=== PATIENT | male | born 1945 | race Caucasian/White ===

== ENCOUNTER 2020-10-30 07:47 | Emergency (ER) | payer MEDICARE, SELFPAY ==
--- NOTE | ~2020-10-30 | XR_ITS ---
EXAMINATION: XR pelvis 1-2V DATE: 10/30/2020 09:53 INDICATION: Nontraumatic right buttock and low back pain radiating down the right leg. TECHNIQUE: 1. Anteroposterior and lateral views of the lumbar spine, and cone-down lateral view of the lumbosacr al junction were obtained. 2. AP view of the pelvis was obtained. COMPARISON: None. FINDINGS: Hypoplastic riblets at a transitional thoracolumbar segment. There are 4 more caudal nonrib-bearing l umbar segments for purposes of this report the estimated L1-L4. Alignment is normal. Vertebral body h eights are normal. Moderate disc height loss at L3-L4. Additional loss of disc height with suggestion of ankylosis at L4-S1. Mild bilateral sacroiliac osteoarthritis. Bilateral hip joint spaces are rela tively preserved. Multiple phleboliths in the pelvis. 3 cm thin wire/needle like metallic foreign bod y in the left upper quadrant. IMPRESSION: 1. Moderate lower lumbar spondylosis. No acute osseous abnormality in the lumbar spine or pelvis. 2. 3 cm thin wire/needle like metallic foreign body in the left upper quadrant. Reviewed, dictated and finalized at location A. IMPRESSION: 1. Moderate lower lumbar spondylosis. No acute osseous abnormality in the lumba r spine or pelvis. 2. 3 cm thin wire/needle like metallic foreign body in the left upper quadrant.
--- NOTE | ~2020-10-30 | XR_ITS ---
EXAMINATION: XR lumbar spine 2-3V DATE: 10/30/2020 09:53 INDICATION: Nontraumatic right buttock and low back pain radiating down the right leg. TECHNIQUE: 1. Anteroposterior and lateral views of the lumbar spine, and cone-down lateral view of the lumbosacr al junction were obtained. 2. AP view of the pelvis was obtained. COMPARISON: None. FINDINGS: Hypoplastic riblets at a transitional thoracolumbar segment. There are 4 more caudal nonrib-bearing l umbar segments for purposes of this report the estimated L1-L4. Alignment is normal. Vertebral body h eights are normal. Moderate disc height loss at L3-L4. Additional loss of disc height with suggestion of ankylosis at L4-S1. Mild bilateral sacroiliac osteoarthritis. Bilateral hip joint spaces are rela tively preserved. Multiple phleboliths in the pelvis. 3 cm thin wire/needle like metallic foreign bod y in the left upper quadrant. IMPRESSION: 1. Moderate lower lumbar spondylosis. No acute osseous abnormality in the lumbar spine or pelvis. 2. 3 cm thin wire/needle like metallic foreign body in the left upper quadrant. Reviewed, dictated and finalized at location A. IMPRESSION: 1. Moderate lower lumbar spondylosis. No acute osseous abnormality in the lumba r spine or pelvis. 2. 3 cm thin wire/needle like metallic foreign body in the left upper quadrant.
[2020-10-30 07:50] VITALS: BP 161/61; PULSE 60; RESP 20; TEMP 36.7; O2SAT 100
--- NOTE | 2020-10-30 09:17 | ED.BACK ---
HPI - Back Pain/Injury General Chief Complaint: Back Pain/Injury Stated Complaint: R HIP PAIN Time Seen by Provider: 10/30/20 08:23 Source: patient and family Mode of arrival: ambulatory Limitations: no limitations History of Present Illness HPI Narrative: Patient is 75 years old white male presented to the ED with pain at the center of the right buttocks with intermittent radiation to the right foot started 4 to 5 days ago. Patient denies any trauma,patient denies bowel dysfunction, bladder dysfunction, altered sensation, focal weakness, or saddle numbness,. Patient also denies any fever, chills, nausea, vomiting, urinary symptoms, abdominal pain or chest pain, Related Data Home Medications Medication Instructions Recorded Confirmed amiodarone 200 mg PO DAILY 10/30/20 10/30/20 metoprolol succinate 50 mg PO DAILY 10/30/20 10/30/20 Allergies Allergy/AdvReac Type Severity Reaction Status Date / Time No Known Allergies Allergy Verified 10/30/20 07:53 Review of Systems Review of Systems: Narrative: CONSTITUTIONAL: Denies fever, chills, or sweats. EYES: Denies visual changes, redness, or discharge. ENT: Denies rhinorrhea, congestion, sore throat, or otalgia. CARDIOVASCULAR: Denies chest pain, palpitations, or edema. RESPIRATORY: Denies cough or dyspnea. GASTROINTESTINAL: Denies abdominal pain, nausea, vomiting, or diarrhea. GENITOURINARY: Denies dysuria or hematuria. SKIN: Denies rash or itching. MUSCULOSKELETAL: Denies back pain, joint pain, or myalgia. NEUROLOGIC: Denies headache, numbness, or weakness. PSYCHIATRIC: Denies anxiety or depression. PMFSH Family History Family History Father Acute myocardial infarction Social History Social History Smoking status: Never smoker Second hand tobacco smoke exposure: Yes Alcohol intake: current Gender identity (if verbalized by the patient): Male Exam Narrative: Exam Narrative: General appearance: Well-developed, well-nourished Skin: Normal color Head: Normocephalic, nontraumatic Eyes: Clear conjunctiva ENT: Oropharynx normal, ears normal, nose normal Neck: Supple, nontender Chest and respiratory: Airway patent, no respiratory distress, no accessory muscle use Heart: Regular rate/rhythm Abdomen: Soft, nontender, no organomegaly, quiet bowel sounds Vascular: Normal peripheral pulses, normal capillary refill. Musculoskeletal: Diffuse tenderness at the center of the right buttock, no bruises, no swelling or rash, negative leg raising test Neurologic: Alert and oriented ?3, BURNER HAND is normal as tested, no gross motor deficit Course Course Emergency Course: Improving Reevaluation(s) Reevaluation #1: Patient feeling much better, less pain at the time of discharge. Patient is not aware about the foreign body at the left side of his abdomen. 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 and the probably something went inside his belly and he was not aware of Date: 10/30/20 Time: 10:39 Vital Signs Vital signs: Vital Signs Temperature 36.7 C 10/30/20 07:50 Pulse Rate 60 10/30/20 07:50 Respiratory Rate 20 10/30/20 07:50 Blood Pressure 161/61 H 10/30/20 07:50 Pulse Oximetry 100 10/30/20 07:50 Temperature 36.7 C 10/30/20 09:54 Pulse Rate 54 L 10/30/20 09:26 Respiratory Rate 18 10/30/20 09:26 Blood Pressure 157/67 H 10/30/20 09:26 Pulse Oximetry 100 10/30/20 09:26 MDM - Back Pain/Injury MDM Narrative Medical decision making narrative: Sacroiliac joints, musculoskeletal lower back pain is my c
[2020-10-30] MEDS: IBUPROFEN 600 MG TABLET PO (09:23)
[2020-10-30] MEDS: diazePAM (*CRX) 5 MG TABLET 2.5 MG PO (09:23)
[2020-10-30] MEDS: MORPHINE SULFATE INJ (*CRX) 10 MG/ML AMP 6 MG IM (09:24)
[2020-10-30 09:26] VITALS: BP 157/67; PULSE 54; RESP 18; O2SAT 100
[2020-10-30 09:53] VITALS: TEMP 36.7
[2020-10-30 09:54] VITALS: TEMP 36.7
[2020-10-30 10:46] VITALS: BP 142/70; PULSE 62; RESP 18; O2SAT 98
== END 2020-10-30 10:48 | disposition home or self-care (01) ==
PROVIDERS: Emergency Provider Emergency Medicine; PCP Internal Medicine
DX: M47.26 Other spondylosis with radiculopathy, lumbar region (principal); S39.012A Strain of muscle, fascia and tendon of lower back, initial encounter; X58.XXXA Exposure to other specified factors, initial encounter
CPT/HCPCS: 72100; 72170; 96372; 99284; A9270; J2270

== ENCOUNTER 2020-11-19 09:39 | Outpatient (CLI) | payer MEDICARE, SELFPAY ==
--- NOTE | ~2020-11-19 | MR_ITS ---
EXAMINATION: MR lumbar spine wo con EXAM DATE: 11/19/2020 10:37 INDICATION: Pain in right lower extremity, right hip and leg pain. Low back pain. TECHNIQUE: Multi-sequential, multiplanar MR images of the lumbar spine were obtained without contrast . Sagittal T1, T2, T2 fat saturation images. Axial T2 weighted images. Study is limited due to pat ient motion. There are no prior studies for comparison. FINDINGS: Moderate disc disease L4-5. Partially fused L5-S1 level. Mild disc disease other lumbar lev els. The conus medullaris terminates at the T12-L1 level and has normal signal intensity and morpholo gy. There are scattered focal signal abnormalities consistent with hemangiomata, otherwise without f ocal suspicious marrow signal abnormalities. The vertebral bodies are aligned in the AP dimension. Pa raspinal soft tissue is unremarkable. Level by level evaluation: T12-L1: Disc does not extend beyond the endplate margin. Facet arthropathy: Mild. Neural foraminal stenosis: No stenosis. Central canal stenosis: No stenosis. L1-L2: There is a minimal diffuse disc bulge. Facet arthropathy: Mild. Neural foraminal stenosis: No stenosis. Central canal stenosis: No stenosis. L2-L3: There is a minimal diffuse disc bulge. Facet arthropathy: Mild to moderate. Neural foraminal stenosis: No stenosis. Central canal stenosis: No stenosis. L3-L4: There is a mild diffuse disc bulge. Facet arthropathy: Moderate. Neural foraminal stenosis: Mild bilateral. Central canal stenosis: Mild. L4-L5: There is a moderate diffuse disc bulge. Facet arthropathy: Mild to moderate. Neural foraminal stenosis: Moderate to severe right, moderate left. Central canal stenosis: Mild. L5-S1: This level is fused. Facet arthropathy: Mild. Neural foraminal stenosis: Mild to moderate bilateral. Central canal stenosis: No stenosis. IMPRESSION: 1. L4-5 moderate disc disease and left neural foraminal stenosis, moderate to severe right neural fo raminal stenosis. 2. Less spondylosis other levels. Reviewed, dictated and finalized at location A. IMPRESSION: 1. L4-5 moderate disc disease and left neural foraminal stenosis, moderate to severe right neural foraminal stenosis. 2. Less spondylosis other levels.
== END 2020-11-19 09:40 | disposition home or self-care (01) ==
PROVIDERS: PCP Internal Medicine; Visit Provider Internal Medicine
DX: M79.604 Pain in right leg (principal); M47.817 Spondylosis without myelopathy or radiculopathy, lumbosacral region
CPT/HCPCS: 72148

== ENCOUNTER 2024-08-26 07:43 | Outpatient (CLI) | payer MEDICARE, SELFPAY ==
--- OUTSIDE RECORDS SUMMARY | 2024-08-26 07:53 | XMS_ITS | CONTINUITY OF CARE DOCUMENT ---
Author Name tania marin Address Unknown Organization [facility] Address [address] [place] [address] Phone [phone] Care Team Providers Care Commercial Lines Underwriter Name Role Phone Armand HORAN, Luke Unavailable LEATHA HORAN, KRISTIAN Unavailable [phone] TOBIAS MD Unavailable [phone] INSURANCE PROVIDERS Payer name Policy type / Coverage type [place] red republican ID U[employer] MEDICARE COMPLETE HMO Other [id number]
--- OUTSIDE RECORDS SUMMARY | 2024-08-26 07:53 | XMS_ITS | Clinical Summary ---
Author Organization [facility] Address [address] [place] [id number] Care Team Providers Care Pressure Washer Name Role Phone Tigist Zan Taylor Primary Care Provider Unavailabl e Allergies Active Allergy Reactions Criticality Noted Date Comments Paragoric Palpitations Low Medications CARTIA XT 120 mg 24 hr capsule TK 1 C PO QD 6 7 Active meloxicam (MOBIC) 7.5 mg tablet TK 1 T PO D FOR INFLAMMATION 0 7 Active HYDROcodone-marcella taminophen (NORCO) 5-325 mg per tabletIndicatio ns:Pain Take 1-2 tablets every 4 hours as needed for pain 30 tablet 7 Active metoprolol XL (TOPROL-XL) 50 mg extended release tablet Take 1 tablet (50 mg total) by mouth daily 30 tablet 0 Active amiodarone (PACERONE) 200 mg tablet Take 1 tablet (200 mg total) by mouth every other day 45 tablet 3 0 Active Active Problems Problem Noted Date Diagnosed Date Arthritis of right knee 12/13/2016 Assessment & Plan (12/13/2016 12:36 PM CDT): A cortisone injection was given through a sterile field. The patient tolerated the procedure well. It is possible he has a subacute gouty attack with a normal uric acid level. He should hydrate and continue with the oral anti-inflammatories until his symptoms are gone. 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
--- OUTSIDE RECORDS SUMMARY | 2024-08-26 07:53 | XMS_ITS | Data Portability ---
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 Name Role Phone VIRGINIE CASTRO Primary Care Provider VIRGINIE CASTRO Referring Provider [phone] Assessment Encounter Date Assessment Date Assessment LastModified by Organization Details LastModified Time 11/02/2022 11/02/2022 ENT PFTs and [address] x-ray because of amiodarone blood work continue current therapy follow-up 4 months [email or web address] Not available 11/02/2022 22:52:32 04/17/2023 04/17/2023 Advised to see E NT for probable cancers lesion on your with never had documentation of his arrhythmia I suspect it was atrial fibrillation however he has not been placed on any anticoagulation so and he has remained in a sinus rhythm clinically continue current therapy he will follow-up with me in 4 months recommended to stay up-to-date on COVID RSV and flu shots Not available 04/20/2023 11:23:34 06/12/2023 06/12/2023 Blood work since he is on amiodarone also chest x-ray PFT with DLCO parking placard because of it arthritis in the knees follow-up with me in 6 months refuses flu shots COVID RSV [email or web address] Not available 06/12/2023 21:16:57 Plan of Treatment Reminders Order Date Submit Date Provider Last Modified By Organization Details Last Modified Time Details Appointments None recorded. Lab PSA, total, serum or plasma 2023 024 [email or web address] [facility] (Lab), [address] [place], [address], 08:53:57 TSH, serum or plasma 2023 024 [email or web address] [facility] (Lab), [address] [place], [address], 4 08:53:56 T3, free, serum or plasma 2023 024 [email or web address] [facility] (Lab), [address] [place], [address], 4 08:53:56 T4, free, serum [email or web address] [place] [address] (Lab), [address] [place], [address], 4 08:53:56 CBC w/ auto diff [email or web address] [place] [address] (Lab), [address] [place], [address], 4 08:53:57 lipid panel, serum 2023 024 [email or web address] [facility] (Lab), [address] [place], [address], 4 08:53:57 CMP, serum or plasma 2023 024 [facility] (Lab), [address] [place], [address], 4 08:53:57 T3, free, serum or plasma [address] (Lab), [address] [place], [address], 3 16:22:24 T4, free, serum 2022 023 [email or web address] [facility] (Lab), [address] [place], [address], 3 16:22:24 TSH, serum or plasma [address] (Lab), [address] [place], [address], 3 16:22:24 CBC w/ auto diff [address] (Lab), [address] [place], [address], 3 16:22:24 lipid panel, serum [address] (Lab), [address] [place], [address], 3 16:22:24 CMP, serum or plasma [address] (Lab), [address] [place], [address], 3 16:22:24 Referral ENT surgery referral 2022 023 erika Smart MD, [address], [place], [address], 3 09:54:12 Procedures None recorded. Surgeries None recorded. Imaging XR, chest 2023 024 [email or web address] [facility] ([facility]), [address] [place], [address], 4 08:54:26 XR, chest 2022 023 [facility] ([facility]), [address] [place], [address], 3 16:03:33 Medication Orders None recorded. Patient TargetsNo targets recorded. Patient Instructions Encounter Date Encounter Id Patient Instructions Last Modified By Organization Details Last Modified Time 11/02/2022 [id number] complete PFT* - with DLCO [email or web address] Not available 06/12/2023 14:19:49 06/12/2023 [id number] complete PFT* - pft with dlco [email or web address] Not available 03/02/2024 08:54:42 Reason for Referral ENT Surgery Referral for Les ion of skin of right ear Referring Physician: Virginie Castro, Internal Medicine, Encounter Date: 11/02/2022 Results Created Date Observation Date Name Description Value Unit Range Abnormal Flag Note LastModifiedBy Organization Detail LastModifiedTime 11/03/1911/02/2022 CBC/C OMPLE TE BLD COUNT W/DIF F white blood cells 6.1 x10'3 /uL 4.2-10 .8 Not Available [facility] (Lab) [address] [place], [address], 11/02/2022 14:35:59 11/03/19 23 11/02/2022 CBC/C OMPLE TE BLD COUNT W/DIF F red blood cells 4.85 x10'6 /uL 4.10-5 .80 Not Available [facility] (Lab) [address] [place], [address], 11/02/2022 14:35:59 11/03/19 23 11/02/2022 CBC/C OMPLE TE BLD COUNT W/DIF F hemoglobin 14.7 g/dL 13.2-1 7.0 Not Available [facility] (Lab) [address] [place], [address], 11/02/2022 14:35:59 11/03/19 23 11/02/2022 CBC/C OMPLE TE BLD COUNT W/DIF F hematocrit 44.7 % 39.3-5 0.0 Not Available [facility] (Lab) [address] [place], [address], 11/02/2022 14:35:59 11/03/19 23 11/02/2022 CBC/C OMPLE TE BLD COUNT W/DIF F mean red cell volume 92.2 fL 80.0-9 7.0 Not Available [facility] (Lab) [address] [place], [address], 11/02/2022 14:35:59 11/03/19 23 11/02/2022 CBC/C OMPLE TE BLD COUNT W/DIF F mean red cell hemoglobin 30.3 pg 27.0-3 3.0 Not Available [facility] (Lab) [address] [place], [address], 11/02/2022 14:35:59 11/03/19 23 11/02/2022 CBC/C OMPLE TE BLD COUNT W/DIF F mean RBC HGB concentratio n 32.9 g/dL 31.0-3 6.0 Not Available [facility] (Lab) [address] [place], [address], 11/02/2022 14:35:59 11/03/19 23 11/02/2022 CBC/C OMPLE TE BLD COUNT W/DIF F red cell distribution width 13.1 % 11.8-1 5.5 Not Available [facility] (Lab) [address] [place], [address], 11/02/2022 14:35:59 11/03/19 23 11/02/2022 CBC/C OMPLE TE BLD COUNT W/DIF F platelets 266 x10'3 /uL 150-40 0 Not Available [facility] (Lab) [address] [place], [address], 11/02/2022 14:35:59 11/03/19 23 11/02/2022 CBC/C OMPLE TE BLD COUNT W/DIF F mean platelet volume 9.5 fL 9.0-12 .4 Not Available [facility] (Lab) [address] [place], [address], 11/02/2022 14:35:59 11/03/19 23 11/02/2022 CBC/C OMPLE TE BLD COUNT W/DIF F neutrophils 64.2 % 39.0-7 2.0 Not Available [facility] (Lab) [address] [place], [address], 11/02/2022 14:35:59 11/03/19 23 11/02/2022 CBC/C OMPLE TE BLD COUNT W/DIF F lymphocytes 24.9 % 16.0-4 7.0 Not Available [facility] (Lab) [address] [place], [address], 11/02/2022 14:35:59 11/03/19 23 11/02/2022 CBC/C OMPLE TE BLD COUNT W/DIF F monocytes 7.2 % 5.0-12 .0 Not Available [facility] (Lab) [address] [place], [address], 11/02/2022 14:35:59 11/03/19 23 11/02/2022 CBC/C OMPLE TE BLD COUNT W/DIF F eosinophils 2.3 % 1.0-7. 0 Not Available [facility] (Lab) [address] [place], [address], 11/02/2022 14:35:59 11/03/19 23 11/02/2022 CBC/C OMPLE TE BLD COUNT W/DIF F basophils 0.7 % 0.0-2. 0 Not Available [facility] (Lab) [address] [place], [address], 11/02/2022 14:35:59 11/03/19 23 11/02/2022 CBC/C OMPLE TE BLD COUNT W/DIF F immature granulocytes 0.7 % 0.00-0 .50 high Not Available [facility] (Lab) [address] [place], [address], 11/02/2022 14:35:59 11/03/19 23 11/02/2022 CBC/C OMPLE TE BLD COUNT W/DIF F neutrophils, absolute count 3.95 x10'3 /uL 1.5-8. 0 Not Available [facility] (Lab) [address] [place], [address], 11/02/2022 14:35:59 11/03/19 23 11/02/2022 CBC/C OMPLE TE BLD COUNT W/DIF F lymphocytes, absolute count 1.53 x10'3 /uL 1.07-3 .43 Not Available [facility] (Lab) [address] [place], [address], 11/02/2022 14:35:59 11/03/19 23 11/02/2022 CBC/C OMPLE TE BLD COUNT W/DIF F monocytes, absolute count 0.44 x10'3 /uL 0.29-0 .99 Not Available [facility] (Lab) [address] [place], [address], 11/02/2022 14:35:59 11/03/19 23 11/02/2022 CBC/C OMPLE TE BLD COUNT W/DIF F eosinophils, absolute count 0.14 x10'3 /uL 0.02-0 .53 Not Available [facility] (Lab) [address] [place], [address], 11/02/2022 14:35:59 11/03/19 23 11/02/2022 CBC/C OMPLE TE BLD COUNT W/DIF F basophils, absolute count 0.04 x10'3 /uL 0.01-0 .08 Not Available [facility] (Lab) [address] [place], [address], 11/02/2022 14:35:59 11/03/19 23 11/02/2022 CBC/C OMPLE TE BLD COUNT W/DIF F immature granulocytes ,absolute 0.04 x10'3 /uL 0.00-0 .05 Not Available [facility] (Lab) [address] [place], [address], 11/02/2022 14:35:59 11/03/19 23 11/02/2022 CBC/C OMPLE TE BLD COUNT W/DIF F nucleated red blood cells 0.0 % -0 Not Available [facility] (Lab) [address] [place], [address], 11/02/2022 14:35:59 11/03/19 23 11/02/2022 CBC/C OMPLE TE BLD COUNT W/DIF F NRBC# 0.00 x10'3 /uL Not Available [facility] (Lab) [address] [place], [address], 11/02/2022 14:35:59 11/03/19 23 11/02/2022 LIPID PANEL cholesterol 187 mg/dL 140-19 9 NIH PALLAVI NSUS RECOM MENDA TION FOR VERONIKA STERO L: ADULT CHILD LOW RISK: <200 <170 BORDE RLINE : <200- 239 ----- HIGH RISK: >240 >200 Not Available [facility] (Lab) [address] [place], [address], 11/02/2022 15:13:19 11/03/1911/02/2022 LIPID PANEL triglyceride s 55 mg/dL 0-150 NIH PALLAVI NSUS REPOR T RECOM MENDA TION FOR TRIGL YCERI JUAN: ADULT CHILD LOW RISK: <150 ----- BODER LINE: 150-1 99 ----- HIGH RISK: >200 ----- Not Available [facility] (Lab) [address] [place], [address], 11/02/2022 15:13:19 11/03/1911/02/2022 LIPID PANEL HDL cholesterol 80 mg/dL 40- Not Available [facility] (Lab) [address] [place], [address], 11/02/2022 15:13:19 11/03/19 11/02/2022 LIPID PANEL LDL cholesterol, calculated 96 mg/dL 0-130 NIH PALLAVI NSUS REPOR T RECOM MENDA TIONS FOR LDL: ADULT CHILD LOW RISK <130 <110 (OPTI MAL LDL) <100 ----- BORDE RLINE : 130-1 59 ----- HIGH RISK: >160 >130 A TRIGL YCERI DE RESUL T >400 INVAL IDATE S THE CALCU LATIO N FOR LDL FRACT IONAT ION - THE LDL RESUL T WILL NOT BE REPOR FELIPA. Not Available [facility] (Lab) [address] [place], [address], 11/02/2022 15:13:19 11/03/19 23 11/02/2022 COMPR EHENS SIDNEY METAB OLIC PANEL sodium 138 mmol/ L 137-14 5 Not Available [facility] (Lab) [address] [place], [address], 11/02/2022 15:13:30 11/03/19 23 11/02/2022 COMPR EHENS SIDNEY METAB OLIC PANEL potassium 4.4 mmol/ L 3.5-5. 1 Not Available [facility] (Lab) [address] [place], [address], 11/02/2022 15:13:30 11/03/19 23 11/02/2022 COMPR EHENS SIDNEY METAB OLIC PANEL chloride 101 mmol/ L 98-107 Not Available [facility] (Lab) [address] [place], [address], 11/02/2022 15:13:30 11/03/19 23 11/02/2022 COMPR EHENS SIDNEY METAB OLIC PANEL carbon dioxide 28 mmol/ L 22-30 Not Available [facility] (Lab) [address] [place], [address], 11/02/2022 15:13:30 11/03/19 23 11/02/2022 COMPR EHENS SIDNEY METAB OLIC PANEL anion gap 13.4 mmol/ L 14-22 low Not Available [facility] (Lab) [address] [place], [address], 11/02/2022 15:13:30 11/03/19 23 11/02/2022 COMPR EHENS SIDNEY METAB OLIC PANEL glucose 92 mg/dL 70-99 Not Available [facility] (Lab) [address] [place], [address], 11/02/2022 15:13:30 11/03/19 23 11/02/2022 COMPR EHENS SIDNEY METAB OLIC PANEL BUN 15 mg/dL 8-19 Not Available [facility] (Lab) [address] [place], [address], 11/02/2022 15:13:30 11/03/19 23 11/02/2022 COMPR EHENS SIDNEY METAB OLIC PANEL creatinine 1.32 mg/dL 0.66-1 .25 high Not Available [facility] (Lab) [address] [place], [address], 11/02/2022 15:13:30 11/03/19 23 11/02/2022 COMPR EHENS SIDNEY METAB OLIC PANEL GFR 52 Refer ence Range : [place] ge GFR Healt hy Adult : >60 mL/mi n/1.7 3 m2 Chron ic Kidne y Disea se: 15-60 mL/mi n/1.7 3 m2 Kidne y Failu re: <15/m L/min /1.73 m2 www.n iddk. nih.g ov The MDRD study equat ion has not been valid ated in child danny <18 years of age; pregn ant women ; the elder ly >85 years of age; or in some racia l or ethni c subgr oups, such as Hispa nics. Outsi de the valid ated ila eters , estim ated GFR is less accur ate, requi ring clini michelle judgm ent on a case- by-ca se basis . Clini michelle inter preta tion for other races and ages must be made by the clini carmine. The MDRD study equat ion has not been valid ated for the evalu ation of serum creat inine relat ed to nutri eduardo l statu s or medic ation usage . For perso ns <18 years of age, a pedia tric GFR calcu latсергей is avail able on the [facility] websi te: https ://wesley luna.o emiliano/pr ofess ional s/kdo qi/gf r_cal culat or Not Available [facility] (Lab) [address] [place], [address], 11/02/2022 15:13:30 11/03/19 23 11/02/2022 COMPR EHENS SIDNEY METAB OLIC PANEL alkaline phosphatase 74 U/L 38-126 Not Available [facility] (Lab) [address] [place], [address], 11/02/2022 15:13:30 11/03/19 23 11/02/2022 COMPR EHENS SIDNEY METAB OLIC PANEL alanine aminotransfe rase 13 U/L 0-50 Not Available [facility] (Lab) [address] [place], [address], 11/02/2022 15:13:30 11/03/19 23 11/02/2022 COMPR EHENS SIDNEY METAB OLIC PANEL aspartate aminotransfe rase 22 U/L 15-46 Not Available [facility] (Lab) [address] [place], [address], 11/02/2022 15:13:30 11/03/19 23 11/02/2022 COMPR EHENS SIDNEY METAB OLIC PANEL bilirubin, total 1.60 mg/dL 0.20-1 .30 high Not Available [facility] (Lab) [address] [place], [address], 11/02/2022 15:13:30 11/03/19 23 11/02/2022 COMPR EHENS SIDNEY METAB OLIC PANEL calcium 9.1 mg/dL 8.4-10 .2 Not Available [facility] (Lab) [address] [place], [address], 11/02/2022 15:13:30 11/03/19 23 11/02/2022 COMPR EHENS SIDNEY METAB OLIC PANEL total protein 6.4 g/dL 6.3-8. 2 Not Available [facility] (Lab) [address] [place], [address], 11/02/2022 15:13:30 11/03/19 23 11/02/2022 COMPR EHENS SIDNEY METAB OLIC PANEL albumin 3.7 g/dL 3.0-4. 4 Not Available [facility] (Lab) [address] [place], [address], 11/02/2022 15:13:30 11/03/19 23 11/02/2022 COMPR EHENS SIDNEY METAB OLIC PANEL globulin 2.7 g/dL 2.6-4. 2 Not Available [facility] (Lab) [address] [place], [address], 11/02/2022 15:13:30 11/03/19 23 11/02/2022 COMPR EHENS SIDNEY METAB OLIC PANEL A/G ratio 1.4 ratio 1.0-2. 0 Not Available [facility] (Lab) [address] [place], [address], 11/02/2022 15:13:30 11/03/19 23 11/02/2022 T3 FREE free T3 3.0 pg/mL 2.77-5 .27 Not Available [facility] (Lab) [address] [place], [address], 11/02/2022 15:17:08 11/03/19 23 11/02/2022 T4 FREE free T4 2.10 NG/dL 0.78-2 .19 Not Available [facility] (Lab) [address] [place], [address], 11/02/2022 15:17:18 11/03/19 23 11/02/2022 TSH thyroid-stim ulating hormone 1.430 uIU/m L 0.465- 4.680 Not Available [facility] (Lab) [address] [place], [address], 11/02/2022 15:30:53 11/03/19 23 11/02/2022 XR, chest [facility] [address] [facility] [place] [address] Patien t Name: AGNIESZKA BROKOE Access ion #: [id number] Sex: M : 1945 8 Locati on: [facility]OP Attend ing Physic shavonne: NEMESIO CASTRO Orderi ng Physic shavonne: NEMESIO CASTRO Exam Date: 023 1:20 PM Exam Name: XR CHEST 2V Admitt ing Diagno sis(es ): RADIOL OGY REPORT - FINAL EXAM: XR CHEST 2V HISTOR Y: DETENTION (CURRE NT) DRUG THERAP Y 77-yea r-old male with tachyc ardia, hypert ension , chest palpit ations . COMPAR GERRY: Chest x-ray dated 2021. TECHNI QUE: PA and latera l views of the chest were perfor med. FINDIN GS: No pneumo thorax , pulmon oliverio edema, or consol idativ e infilt rates. There are calcif ied lymph nodes in the bilate ral vandana. The lungs are hypere xpande d with flatte chloé of the diaphr agm on the latera l film. The heart is not enlarg ed. No fractu res are identi fied about the bony thorax . 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 There is slight thorac ic dextro scolio sis. Page 1 of 2 [facility] Geraldine t Name: AGNIESZKA BROOKE Access ion #: [id number] Sex: M : 1945 8 Exam Date: 023 1:20 PM Exam Name: XR CHEST 2V Admitt ing Diagno sis(es ): IMPRES JENNY: 1. Pulmon oliverio hypere xpansi on withou t eviden ce of acute intrat horaci c proces s. 2. 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 Create d and electr onical ly signed by: Mitul brown MD Signed Date: 1:55 PM (CT) Dictat ed by: Mitul brown MD DD: 1:55 PM (CT) DT: 1:55 PM (CT) Page 2 [email or web address] (Imaging) [address] [place], [address], 05/01/2023 13:27:50 Result Notes None recorded. Problems Name Problem SNOMED Code Status Onset Date Resolution Date Notes Provider Name and Address Organization Details Recorded Time Benign prostatic hyperplasia 654386246 Active 2021 Not Available [facility] 3 22:45:13 Essential hypertension 97597995 Active 2021 Not Available [facility] 3 22:45:14 Cardiac arrhythmia 646258924 Active 2019 Not Available [facility] 3 22:45:14 Problem Notes None recorded. Procedures Surgical History Date Name Laterality Status Provider Name and Address Organization Details Recorded Time Vasectomy completed Not Available [facility] 0 08/08/2022 03:02:46 Imaging Results Imaging Date Name Status LastModified by Organiz ation Details LastModified Time 11/02/2022 XR, chest completed [email or web address] [facility] (Imaging) [address] [place], [address], 05/01/2023 13:27:50 Procedure Notes None recorded. Medical Equipment None Reported. Allergies No known drug allergies Medications Name Sig Start Date Stop Date Status Note LastModified by Organization Details LastModified Time naproxen 375 mg tablet TAKE 1 TABLET BY MOUTH TWICE DAILY NEEDED 05/22 completed Not Available Not Available Not Available azithromyci n 250 mg tablet TAKE 2 TABLETS (500 MG) BY ORAL ROUTE ONCE DAILY FOR 1 DAY THEN 1 TABLET (250 MG) BY ORAL ROUTE ONCE DAILY FOR 4 DAYS 12/04 completed Not Available Not Available Not Available amiodarone 200 mg tablet TAKE 1 TABLET BY MOUTH EVERY OTHER DAY DIRECTED 2023 active Not Available Not Available Not Avai lable metoprolol succinate ER 50 mg tablet,exte nded release 24 hr TAKE 1 TABLET BY MOUTH EVERY DAY active Not Available Not Available No t Available valacyclovi r 1 gram tablet TK 1 T PO TID FOR 7 DAYS 02/07 completed Not Available Not Available Not Available hydrocodone 5 mg-acetamin ophen 325 mg tablet Take 1 tablet 3 times a day by oral route as needed. active Not Available Not Available No t Available tramadol 50 mg tablet TAKE 1 TABLET BY MOUTH EVERY 8 HOURS NEEDED 09/13 completed Not Available Not Available Not Available ceftriaxone 1 gram solution for injection Take 1 g by injection route. 02/14 completed Not Available Not Available Not Available tamsulosin 0.4 mg capsule TAKE 1 CAPSULE BY MOUTH EVERY DAY AT BEDTIME 2023 active Not Available Not Available Not Avai lable Xylocaine 20 mg/mL (2 %) injection solution Take 10 mL by injection route. 02/14 completed Not Available Not Available Not Available gentamicin 40 mg/mL injection solution Take 80 mL by injection route. 02/14 completed Not Available Not Available Not Available methylpredn isolone 4 mg tablets in a dose pack FOLLOW PACKAGE DIRECTION S 12/30 completed Not Available Not Available Not Available naproxen 500 mg tablet 02/07 completed Not Available Not Available Not Available cyclobenzap rine 5 mg tablet TK 1 T PO Q 8 H 02/07 completed Not Available Not Available Not Available amiodarone 100 mg tablet Take 1 tablet every day by oral route. 11/02 completed Not Available Not Available Not Available Vitals Date Recorded Body height Body mass index (BMI) Body weight Body temperature Heart rate Systolic blood pressure Diastolic blood pressure Provider Name and Address Organization Details Last Updated DateTime 3 170.18 cm 26.6 kg/m2 88030.7 g 97.8 [degF] 50 /min 130 mm[Hg] 70 mm[Hg] CECILLE [place] [facility] 3 13:24:52 Date Recorded Body height Body mass index (BMI) Body weight Body temperature Heart rate Systolic blood pressure Diastolic blood pressure Provider Name and Address Organization Details Last Updated DateTime 3 170.18 cm 26.6 kg/m2 69485.7 g 97.3 [degF] 61 /min 130 mm[Hg] 72 mm[Hg] Helene Thomas [facility] [employer] [facility] 3 14:01:53 Date Recorded Body height Body mass index (BMI) Body weight Body temperature Heart rate Systolic blood pressure Diastolic blood pressure Provider Name and Address Organization Details Last Updated DateTime 4 170.18 cm 26.8 kg/m2 06320.3 g 97.5 [degF] 60 /min 120 mm[Hg] 82 mm[Hg] Helene Thomas [facility] [employer] [facility] 4 14:07:36 Date Recorded Body mass index (BMI) Body height Oxygen saturation Oxygen saturation in Arterial blood by Pulse oximetry Body temperature Body weight Provider Name and Address Organization Details Last Updated DateTime 2 26.2 kg/m2 170.18 cm 98 % 98 % 98.1 [degF] 02965.9 3 g Not Available [facility] 3 03:04:05 Date Recorded Body mass index (BMI) Body height Heart rate Body temperature Body weight Systolic blood pressure Diastolic blood pressure Provider Name and Address Organization Details Last Updated DateTime 2 25.5 kg/m2 170.18 cm 54 /min 97.5 [degF] 51534.5 6 g 134 mm[Hg] 76 mm[Hg] Not Available [facility] 3 03:04:03 Social History Question Answer Notes LastModified by Organization Details LastModified Time Tobacco Smoking Status Never Smoker Not Available [facility] 08/08/2022 02:57:50 Do You Have An Advance Directive? No Patient Declined Information. [id number] Information not available 08/08/2022 What Is Your Level Of Alcohol Consumption? Moderate Patient Reported About 3 Beers Per Week. [id number] Information not available 08/08/2022 Are You Blind Or Do You Have Difficulty Seeing? No [id number] Information not available 08/08/2022 What Is Your Level Of Caffeine Consumption? Occasional [id number] Information not available 08/08/2022 How Much Tobacco Do You Chew? None [id number] Information not available 08/08/2022 In The 14 Days Before Symptom Onset, Have You Had Close Contact With A Laboratory-confi rmed COVID-19 While That Case Was Ill? No [id number] Information not available 08/08/2022 In The 14 Days Before Symptom Onset, Have You Had Close Contact With A Person Who Is Under Investigation For COVID-19 While That Person Was Ill? No [id number] Information not available 08/08/2022 Are You Deaf Or Do You Have Serious Difficulty Hearing? Yes [id number] Information not available 08/08/2022 What Type Of Diet Are You Following? REGULAR [id number] [id number] Information not available 08/08/2022 Which Illicit Or Recreational Drugs Have You Used? None [id number] Information not available 08/08/2022 Do You Or Have You Ever Used E-cigarettes Or Vape? Never Used Electronic Cigarettes [id number] Information not available 08/08/2022 What Is Your Occupation? Retired [id number] [id number] Information not available 08/08/2022 Have There Been Any Changes To Your Family Or Social Situation? No [id number] [id number] Information not available 08/08/2022 What Is The Fluoride Status Of Your Home? Unknown [id number].0301 [id number] Information not available 08/08/2022 Are There Any Guns Present In Your Home? No MIGRATION.[id number] [id number] Information not available 08/08/2022 Do You Use Insect Repellent Routinely? No [id number] [id number] Information not available 08/08/2022 Where Do You Live? [place]iler MIGRATION.0301 [id number] Information not available 08/08/2022 Do You Have A Medical Power Of Stuntman? No MIGRATION.0301 [id number] Information not available 08/08/2022 What Was The Date Of Your Most Recent Tobacco Screening? 06/12/2023 [email or web address] Information not available 06/12/2023 Have You Ever Been Counseled For Unhealthy Alcohol Use? No MIGRATION.0301 [id number] Information not available 08/08/2022 Do You Have Any Pets? No MIGRATION.0301 [id number] Information not available 08/08/2022 What Is Your Relationship Status? MIGRATION.0301 [id number] Information not available 08/08/2022 Do You Use Your Seat Belt Or Car Seat Routinely? Yes MIGRATION.0301 794336 Information not available 08/08/2022 Do You Have Smoke And Carbon Monoxide Detectors In Your Home? Yes MIGRATION.0301 438453 Information not available 08/08/2022 Are You Passively Exposed To Smoke? Yes MIGRATION.0301 630090 Information not available 08/08/2022 Do You Or Have You Ever Used Smokeless Tobacco? Current Snuff User Occasionally MIGRATION.0301 [id number] Information not available 08/08/2022 Are There Any Smokers In Your House? No MIGRATION.0301 [id number] Information not available 08/08/2022 How Much Tobacco Do You Smoke? No MIGRATION.0301 929273 Information not available 08/08/2022 What Types Of Sporting Activities Do You Participate In? None MIGRATION.0301 [id number] Information not available 08/08/2022 Do You Feel Stressed (tense, Restless, Nervous, Or Anxious, Or Unable To Sleep At Night)? [id number] MIGRATION.0301 [id number] Information not available 08/08/2022 Do You Use Any Illicit Or Recreational Drugs? No MIGRATION.0301 640454 Information not available 08/08/2022 Do You Use Sunscreen Routinely? No MIGRATION.0301 119340 Information not available 08/08/2022 Have You Recently Traveled Abroad? No MIGRATION.0301 923556 Information not available 08/08/2022 Do You Have Any Dietary Restrictions? No MIGRATION.0301 213664 Information not available 08/08/2022 Do You Or Have You Ever Used Any Other Forms Of Tobacco Or Nicotine? Yes MIGRATION.0301 902054 Information not available 08/08/2022 Sex: Male Functional Status Question Answer Note LastModified by Organizat ion Details LastModified Time Do you have difficulty walking or climbing stairs? Yes MIGRATION.7700827 026 Information not available 08/08/2022 Do you have transportation difficulties? No MIGRATION.4982715 026 Information not available 08/08/2022 Are you able to walk? YESASSIST cane MIGRATION.5819636 026 Information not available 08/08/2022 Do you have difficulty doing errands alone? No MIGRATION.4506331 026 Information not available 08/08/2022 Are you able to care for yourself? Yes MIGRATION.1279778 026 Information not available 08/08/2022 Do you have difficulty dressing or bathing? No MIGRATION.3166580 026 Information not available 08/08/2022 What is your exercise level? Occasional MIGRATION.9403750 026 Information not available 08/08/2022 Mental Status Question Answer Note LastModified by Organizat ion Details LastModified Time Do you have difficulty concentrating, remembering or making decisions? No MIGRATION.[id number] 6 Information not available 08/08/2022 Family History Relationship Description Onset Age of this Age Resolved Age Notes LastModified by Organization Details LastModified Time Unspecified Relation Hypertensive disorder MIGRATION.271 [id number] Not available 08/08/2022 03:02:48 Father Old-age deceas ed MIGRATION.162 [id number] Not available 08/08/2022 03:02:48 Mother Old-age deceas ed MIGRATION.059 [id number] Not available 08/08/2022 03:02:48 Son Drowning MIGRATION.413 [id number] Not available 08/08/2022 03:02:48 Medical History Condition Response NERVE DISEASE N CYSTITIS N BLINDNESS N RHEUMATIC FEVER N KIDNEY STONES Y BLADDER PROBLEMS N MRSA N OTHER # 1 N POLIO N LUNG DISEASE/DISORDER N HISTORY OF DRUG ABUSE N RADIATION / CHEMOTHERAPY N COPD N Other # 2 N BLOOD DISEASES N EAR OR HEARING PROBLEMS N MUMPS N BOWEL PROBLEMS N DEPRESSION (INCLUDING POST ) N STROKE/TIA N ULCERS N BENIGN PROSTATIC HYPERPLASIA N MEASLES N MYOCARDIAL INFARCTION N OBESITY N GERD/NAUSEA N ANEURYSM N URINARY/BLADDER/KIDNEY PROBLEMS N CORONARY ARTERY DISEASE (CAD) N ADDICTION CONCERNS N ENDOMETRIOSIS N Impotence N USE OF BLOOD THINNERS N SKIN PROBLEMS N GASTROINTESTINAL DISORDER N PERIPHERAL VASCULAR DISEASE N MUSCLE,JOINT OR BONE PROBLEMS N GASTROINTESTINAL BLEEDING N BLOOD CLOTS N ASTHMA N CATARACTS N ERECTILE DYSFUNCTION N VARICOSITIES N GI PROBLEMS N Low Testosterone N INFERTILITY N AIDS/HIV N CHEMOTHERAPY / RADIATION N LIVER DISEASE N MALE HYPOGONADISM N HYPERTENSION Y Deficiency N TOURETTE'S N ANXIETY DISORDER N BLOOD TRANSFUSION N ANEMIA/BLOOD DISORDER N CHRONIC EAR INFECTIONS N BRONCHITIS N TUBERCULOSIS N GLAUCOMA N FOOT PROBLEM N DIVERTICULITIS N CHICKENPOX N SLEEP APNEA N INFECTIOUS DISEASE N HEART ARRHYTHMIA N PROSTATE N INSOMNIA N HIGH CHOLESTEROL / HYPERLIPIDEMIA N HYPERTHYROIDISM N EYE PROBLEMS N EDEMA N CHRONIC PAIN SYNDROME N HYPOTHYROIDISM N CAROTID BLOCKAGE N CONSTIPATION N BACK / NECK PROBLEMS N HAVE YOU BEEN HOSPITALIZED OR SEEN IN [facility] IN THE PAST YEAR ? N ATHEROSCLEROSIS N BREAST PROBLEMS N DIALYSIS N ECZEMA N OSTEOPOROSIS N ARTHRITIS Y NO SIGNIFICANT PAST MEDICAL HISTORY N APPENDICITIS N DIABETES, TYPE N BAD TEETH N ENT N HEARTBURN / REFLUX N AUTISM SPECTRUM DISORDER (ASD) N HEPATITIS / LIVER DISEASE N GOUT N SLEEP DISORDER N ALZHEIMER'S DISEASE N Brain Problems N HERPES N DEMENTIA N HEADACHES/MIGRAINES N SEIZURES/EPILEPSY N HEART MURMUR N VASCULAR DISEASE N PACEMAKER N Blood Disorder N DIZZINESS N HEART DISEASE/HEART PROBLEMS N KIDNEY DISEASE N MULTIPLE SCLEROSIS N CARDIAC ARRHYTHMIA N CANCER: SPECIFY N ANESTHESIA COMPLICATIONS N ATRIAL FIBRILLATION Y Gall Stones N PULMONARY EMBOLISM N AUTOIMMUNE DISEASE N Past Encounters Encounter ID Performer Location Encounter Start Date Encounter Closed Date Diagnosis/Indication Diagnosis SNOMED-CT Code Diagnosis ICD10 Code Diagnosis Note [id number] [facility] [place] [address] [place] [address] 09/15/2020 00:00:00 09/15/2020 10:31:59 [id number] [facility] Trinidad taylor [address] [facility] [address] [facility] [place] [address] 11/10/2020 00:00:00 11/10/2020 20:17:05 [id number] [facility] [address] [address] 12/30/2020 00:00:00 01/07/2021 12:36:56 [id number] [facility] [address] [place] [address] , [address] [address] 05/22/2021 00:00:00 06/10/2021 22:24:04 [id number] [facility] [place] [address] [facility] [address] [place] [address] 06/22/2021 00:00:00 06/22/2021 13:59:53 [id number] [facility] 15 [address] [facility] [address] [address] 09/04/2021 00:00:00 09/10/2021 14:41:23 [id number] [facility] [address] [place] [address] 09/13/2021 00:00:00 09/13/2021 11:16:11 [id number] [facility] [place] [address] [address] 12/04/2021 00:00:00 12/04/2021 23:04:26 [id number] [facility] [address] [place] [address] 01/17/2022 00:00:00 01/17/2022 11:23:47 [id number] [facility] [address] [place] [address] 02/07/2022 00:00:00 02/07/2022 11:07:27 [id number] [facility] [address] [place] [address] 02/14/2022 00:00:00 02/14/2022 09:28:19 [id number] [facility] [address] [address] 04/23/2022 00:00:00 04/23/2022 22:52:46 [id number] Virginie Castro MD [facility] [place] [address] [address] 11/02/2022 12:46:51 11/02/2022 13:50:03 Long-term drug therapy 606861381 Z79.899 Essential hypertension 02684501 I10 Lesion of skin of right ear 5655252039 5774507 H93.8X1 Cardiac arrhythmia 29545 7007 I49.9 Benign pro static hyperplasia 222471720 N40.0 [id number] Virginie Castro MD [facility] [place] [address] [facility] [place] [address] [place] [address] 04/17/2023 13:54:17 04/17/2023 14:30:28 Benign prostatic hyperplasia 301547723 N40.0 Cardiac arrhythmia 58560 7007 I49.9 Essential hypertension 65419159 I10 Lesion of skin of right ear 5516938188 6501324 H93.8X1 [id number] Virginie Castro MD [facility] Internal Med [facility] [address] [facility] [address] [place] [address] 06/12/2023 13:54:03 06/12/2023 14:59:30 Long-term drug therapy 724179856 Z79.899 Essential hypertension 32253023 I10 Screening for malignant neoplasm of prostate 444941917 Z12.5 Health Concerns Section Related Observation LastModified by Organization Detai ls LastModified Time None Recorded Concern Status LastModified by Organization Details LastModified Time None Recorded Advance Directives Directive N: Patient declined informat ion. Payers Encounter Date Sequence Insurance Name Policy Number Policy Gant Covered Member ID Gant Member ID Guarantor Name 11/02/2022 1 [facility] (MEDICARE REPLACEMENT/A DVANTAGE - HMO) [id number] Agnieszka Rm [id number] Agnieszka Rm 04/17/2023 1 [facility] (MEDICARE REPLACEMENT/A DVANTAGE - HMO) [id number] Agnieszka Rm [id number] Agnieszka Rm 06/12/2023 1 [facility] (MEDICARE REPLACEMENT/A DVANTAGE - HMO) [id number] Agnieszka Rm [id number] Agnieszka Rm Notes Date Note Type Note Provider Name and Address Organization Details Recorded Time 11/02/2022 text/html arrhythmia asymptomatic lesion right ear BPH follows with Urology Virginie Castro MD [address], [facility] [address], [place], [address], [facility] [employer] [facility] 11/02/2022 22:52:51 04/17/2023 text/html Did not go see ENT. Arrhythmia he is not having any problems with palpitations hypertension no headache or dizziness BPH symptoms have been doing fine Virginie Castro MD [address], [place] [address], [place], [address], [facility] [employer] [facility] 04/20/2023 11:23:51 06/12/2023 text/html Did not go see ENT. Arrhythmia he is not having any problems with palpitations hypertension no headache or dizziness BPH symptoms have been doing fine still does not want to see ENT. 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
--- OUTSIDE RECORDS SUMMARY | 2024-08-26 07:53 | XMS_ITS | Data Portability ---
Author Organization [facility] Address [address] [place] [address] Care Team Providers Care Staff Research Associate Name Role Phone VIRGINIE CASTRO Primary Care Provider Unavailabl e Assessment Encounter Date Assessment Date Assessment LastModified by Organization Details LastModified Time 08/08/2023 08/08/2023 Refuses to do any screenings I would like to go down on the amiodarone however he is reluctant to change anything at this time I will see him in 4 months x-ray of both knees [email or web address] Not available 08/11/2023 17:34:02 12/03/2023 12/03/2023 approximately 50 stitches taken out wound well approximated no bleeding check CBC CMP lipid thyroid studies cut amiodarone down to 100 mg daily check PFTs with DLCO still we are trying to get cardiology records see me in 3 months. He does not want any medication he says he just wants to monitor the blood pressure today he says it has up a little bit because he still has little bit of pain in his arm [email or web address] Not available 12/16/2023 21:56:36 07/31/2024 07/31/2024 pulmonary function test. CBC CMP lipid thyroid studies as well as PSA. Advised to stay up-to-date on all screenings and immunizations he will take a Tdap today. He will see me in 4-5 months we are still trying to get old records I told him it was very important to keep up on lung function given the fact that he has been on amiodarone for quite some time refuses to see Cardiology at this point clinically stable [email or web address] Not available 08/01/2024 16:49:40 Plan of Treatment Reminders Order Date Submit Date Provider Last Modified By Organization Details Last Modified Time Details Appointments ANY 15 2024 10:30A Jeanne Castro MD Not available Not available Not available Lab PSA, total, serum or plasma 2024 025 CALEDONIA Juan, [address], [place], [address], 08/01/2024 13:09:27 CBC w/ auto diff 2024 025 CALEDONIA Juan, [address], [place], [address], 08/01/2024 13:09:25 CMP, serum or plasma 2024 025 CALEDONIA Juan, [address], [place], [address], 08/01/2024 13:09:23 lipid panel, serum 2024 025 CALEDONIA Juan, [address], [address], [place], [address], 08/01/2024 13:09:21 TSH, ultra-sen sitive, serum 2024 025 CALEDONIA Juan, [address], [address], [place], [address], 08/01/2024 13:09:24 T3, free, serum or plasma 2024 025 CALEDONIA Juan, [address], [address], [place], [address], 08/01/2024 13:09:28 unlisted lab - T4, free 2024 025 UMBERTO Dickerson, [address], [address], [place], [address], 08/01/2024 13:09:22 CBC w/ auto diff 2023 024 UMBERTOSIERRA Dickerson, [address], [address], [place], [address], 01/21/2024 06:17:48 CMP, serum or plasma 2023 024 [facility], [address], [place], [address], 01/21/2024 06:17:46 lipid panel, serum 2023 024 CALEDONIA [facility], [address], [place], [address], 01/21/2024 06:17:45 TSH, ultra-sen sitive, serum 2023 024 [facility], [address], [place], [address], 01/21/2024 06:17:47 T3, free, serum or plasma 2023 024 [facility], [address], [place], [address], 01/21/2024 06:17:48 unlisted lab - T4, free 2023 024 [facility], [address], [address], [place], [address], 01/21/2024 06:17:46 Referral None recorded. Procedures None recorded. Surgeries None recorded. Imaging PFT, complete - amioda simi therapy Complete PFT with DLCO [address] ([facility]), [address], [place], [address], 07/31/2024 13:27:33 PFT, complete - amioda simi therapy Complete PFT with DLCO 2023 024 [facility] ([facility]), [address] [place], [address], 07/31/2024 12:47:24 Medication Orders amiodaron e 100 mg tablet 2023 024 [id number], [address], [place], [place], [id number], 02/20/2024 12:00:29 Patient TargetsNo targets recorded. Patient Instructions Encounter Date Encounter Id Patient Instructions Last Modified By Organization Details Last Modified Time 12/27/2023 [id number] preventing falls : care instructions [email or web address] Not available 12/27/2023 16:26:32 Medicare Wellnes s Preventive Checklist [email or web address] Not available 12/27/2023 16:26:32 Reason for Referral None Reported. Results Created Date Observation Date Name Description Value Unit Range Abnormal Flag Note LastModifiedBy Organization Detail LastModifiedTime 01/20/2001/21/2024 LIPID PANEL cholesterol, total 160 mg/dL 100-19 9 Not Available [facility] ([facility]) [address] [place], [address], 01/21/2024 06:17:45 01/20/20 24 01/21/2024 LIPID PANEL triglyceride s 57 mg/dL 0-149 Not Available [facility] ([facility]) [address] [place], [address], 01/21/2024 06:17:45 01/20/20 24 01/21/2024 LIPID PANEL HDL cholesterol 73 mg/dL >39 Not Available [facility] ([facility]) [address] [place], [address], 01/21/2024 06:17:45 01/20/20 24 01/21/2024 LIPID PANEL VLDL cholesterol michelle 12 mg/dL 5-40 Not Available [facility] ([facility]) [address] [place], [address], 01/21/2024 06:17:45 01/20/20 24 01/21/2024 LIPID PANEL LDL chol calc ([facility]) 75 mg/dL 0-99 Not Available [facility] ([facility]) [address] [facility] [place], [address], 01/21/2024 06:17:45 01/20/2001/21/2024 T4, FREE T4,free(dire ct) 1.87 NG/dL 0.82-1 .77 above high normal Not Available [facility] ([facility]) [address] [facility] [place], [address], 01/21/2024 06:17:46 01/20/20 24 01/21/2024 COMP. METAB OLIC PANEL (14) glucose 98 mg/dL 70-99 Not Available [facility] ([facility]) [address] [facility] [place], [address], 01/21/2024 06:17:46 01/20/20 24 01/21/2024 COMP. METAB OLIC PANEL (14) BUN 19 mg/dL 8-27 Not Available [facility] ([facility]) [address] [place], [address], 01/21/2024 06:17:46 01/20/20 24 01/21/2024 COMP. METAB OLIC PANEL (14) creatinine 1.51 mg/dL 0.76-1 .27 above high normal Not Available [facility] ([facility]) [address] [place], [address], 01/21/2024 06:17:46 01/20/20 24 01/21/2024 COMP. METAB OLIC PANEL (14) eGFR 47 mL/mi n/1.7 3 >59 below low normal Not Available [facility] ([facility]) [address] [place], [address], 01/21/2024 06:17:46 01/20/20 24 01/21/2024 COMP. METAB OLIC PANEL (14) BUN/creatini ne ratio 13 -24 Not Available [facility] ([facility]) [address] [place], [address], 01/21/2024 06:17:46 01/20/20 24 01/21/2024 COMP. METAB OLIC PANEL (14) sodium 134 mmol/ L 134-14 4 Not Available [facility] ([facility]) [address] [facility], [place], [address], 01/21/2024 06:17:46 01/20/20 24 01/21/2024 COMP. METAB OLIC PANEL (14) potassium 4.5 mmol/ L 3.5-5. 2 Not Available [facility] ([facility]) [address] [facility], [place], [address], 01/21/2024 06:17:46 01/20/20 24 01/21/2024 COMP. METAB OLIC PANEL (14) chloride 98 mmol/ L 96-106 Not Available [facility] ([facility]) [address] [facility] [place], [address], 01/21/2024 06:17:46 01/20/20 24 01/21/2024 COMP. METAB OLIC PANEL (14) carbon dioxide, total 22 mmol/ L 20-29 Not Available [facility] ([facility]) [address] [facility] [place], [address], 01/21/2024 06:17:46 01/20/20 24 01/21/2024 COMP. METAB OLIC PANEL (14) calcium 8.8 mg/dL 8.6-10 .2 Not Available [facility] ([facility]) [address] [facility] [place], [address], 01/21/2024 06:17:46 01/20/20 24 01/21/2024 COMP. METAB OLIC PANEL (14) protein, total 6.0 g/dL 6.0-8. 5 Not Available [facility] ([facility]) [address] [facility] [place], [address], 01/21/2024 06:17:46 01/20/20 24 01/21/2024 COMP. METAB OLIC PANEL (14) albumin 3.7 g/dL 3.8-4. 8 below low normal Not Available [facility] ([facility]) [address] [facility] [place], [address], 01/21/2024 06:17:46 01/20/20 24 01/21/2024 COMP. METAB OLIC PANEL (14) globulin, total 2.3 g/dL 1.5-4. 5 Not Available [facility] ([facility]) [address] [facility] [place], [address], 01/21/2024 06:17:46 01/20/20 24 01/21/2024 COMP. METAB OLIC PANEL (14) bilirubin, total 1.3 mg/dL 0.0-1. 2 above high normal Not Available [facility] ([facility]) [address] [facility] [place], [address], 01/21/2024 06:17:46 01/20/20 24 01/21/2024 COMP. METAB OLIC PANEL (14) alkaline phosphatase 76 IU/L 44-121 Not Available [facility] ([facility]) [address] [place], [address], 01/21/2024 06:17:46 01/20/20 24 01/21/2024 COMP. METAB OLIC PANEL (14) AST (SGOT) 12 IU/L 0-40 Not Available [facility] ([facility]) [address] [place], [address], 01/21/2024 06:17:46 01/20/20 24 01/21/2024 COMP. METAB OLIC PANEL (14) ALT (SGPT) 6 IU/L 0-44 Not Available [facility] ([facility]) [address] [place], [address], 01/21/2024 06:17:46 01/20/20 24 01/21/2024 TSH TSH 1.230 uIU/m L 0.450- 4.500 Not Available [facility] ([facility]) [address] [facility], [place], [address], 01/21/2024 06:17:47 01/20/20 24 01/20/2024 CBC WITH DIFFE RENTI AL/PL ATELE T WBC 5.5 x10e3 /uL 3.4-10 .8 Not Available [facility] ([facility]) [address] [facility], [place], [address], 01/21/2024 06:17:48 01/20/20 24 01/20/2024 CBC WITH DIFFE RENTI AL/PL ATELE T RBC 4.77 x10e6 /uL 4.14-5 .80 Not Available [facility] ([facility]) [address] [facility], [place], [address], 01/21/2024 06:17:48 01/20/20 24 01/20/2024 CBC WITH DIFFE RENTI AL/PL ATELE T hemoglobin 13.9 g/dL 13.0-1 7.7 Not Available [facility] ([facility]) [address] [place], [address], 01/21/2024 06:17:48 01/20/20 24 01/20/2024 CBC WITH DIFFE RENTI AL/PL ATELE T hematocrit 43.1 % 37.5-5 1.0 Not Available [facility] ([facility]) [address] [place], [address], 01/21/2024 06:17:48 01/20/2001/20/2024 CBC WITH DIFFE RENTI AL/PL ATELE T MCV 90 fL 79-97 Not Available [facility] ([facility]) [address] [place], [address], 01/21/2024 06:17:48 01/20/20 24 01/20/2024 CBC WITH DIFFE RENTI AL/PL ATELE T MCH 29.1 pg 26.6-3 3.0 Not Available [facility] ([facility] [address] [facility], [place], [address], 01/21/2024 06:17:48 01/20/20 24 01/20/2024 CBC WITH DIFFE RENTI AL/PL ATELE T MCHC 32.3 g/dL 31.5-3 5.7 Not Available [facility] ([facility]) [address] [facility], [place], [address], 01/21/2024 06:17:48 01/20/20 24 01/20/2024 CBC WITH DIFFE RENTI AL/PL ATELE T RDW 12.7 % 11.6-1 5.4 Not Available [facility] ([facility]) [address] [facility], [place], [address], 01/21/2024 06:17:48 01/20/20 24 01/20/2024 CBC WITH DIFFE RENTI AL/PL ATELE T platelets 254 x10e3 /uL 150-45 0 Not Available [facility] ([facility]) [address] [facility], [place], [address], 01/21/2024 06:17:48 01/20/20 24 01/20/2024 CBC WITH DIFFE RENTI AL/PL ATELE T neutrophils 67 % notest ab. Not Available [facility] ([facility]) [address] [facility], [place], [address], 01/21/2024 06:17:48 01/20/20 24 01/20/2024 CBC WITH DIFFE RENTI AL/PL ATELE T lymphs 24 % notest ab. Not Available [facility] ([facility]) [address] [facility], [place], [address], 01/21/2024 06:17:48 01/20/20 24 01/20/2024 CBC WITH DIFFE RENTI AL/PL ATELE T monocytes 6 % notest ab. Not Available [facility] ([facility]) [address] [facility], [place], [address], 01/21/2024 06:17:48 01/20/20 24 01/20/2024 CBC WITH DIFFE RENTI AL/PL ATELE T eos 2 % notest ab. Not Available [facility] ([facility]) [address] [facility], [place], [address], 01/21/2024 06:17:48 01/20/20 24 01/20/2024 CBC WITH DIFFE RENTI AL/PL ATELE T basos 1 % notest ab. Not Available [facility] ([facility]) [address] [facility], [place], [address], 01/21/2024 06:17:48 01/20/20 24 01/20/2024 CBC WITH DIFFE RENTI AL/PL ATELE T neutrophils (absolute) 3.7 x10e3 /uL 1.4-7. 0 Not Available [facility] ([facility]) [address] [facility], [place], [address], 01/21/2024 06:17:48 01/20/20 24 01/20/2024 CBC WITH DIFFE RENTI AL/PL ATELE T lymphs (absolute) 1.4 x10e3 /uL 0.7-3. 1 Not Available [facility] ([facility]) [address] [facility], [place], [address], 01/21/2024 06:17:48 01/20/20 24 01/20/2024 CBC WITH DIFFE RENTI AL/PL ATELE T monocytes(ab solute) 0.4 x10e3 /uL 0.1-0. 9 Not Available [facility] ([facility]) [address] [facility], [place], [address], 01/21/2024 06:17:48 01/20/20 24 01/20/2024 CBC WITH DIFFE RENTI AL/PL ATELE T eos (absolute) 0.1 x10e3 /uL 0.0-0. 4 Not Available [facility] ([facility]) [address] [facility], [place], [address], 01/21/2024 06:17:48 01/20/20 24 01/20/2024 CBC WITH DIFFE RENTI AL/PL ATELE T baso (absolute) 0.1 x10e3 /uL 0.0-0. 2 Not Available [facility] ([facility]) [address] [facility], [place], [address], 01/21/2024 06:17:48 01/20/20 24 01/20/2024 CBC WITH DIFFE RENTI AL/PL ATELE T immature granulocytes 0 % notest ab. Not Available [facility] ([facility]) [address] [facility], [place], [address], 01/21/2024 06:17:48 01/20/20 24 01/20/2024 CBC WITH DIFFE RENTI AL/PL ATELE T immature grans (abs) 0.0 x10e3 /uL 0.0-0. 1 Not Available [facility] ([facility]) [address] [place], [address], 01/21/2024 06:17:48 01/20/20 24 01/21/2024 TRIIO DOTHY KARINA E (T3), FREE triiodothyro nine (T3), free 1.9 pg/mL 2.0-4. 4 below low normal Not Available [facility] ([facility]) [address] [place], [address], 01/21/2024 06:17:48 07/31/19 25 08/01/2024 LIPID PANEL cholesterol, total 178 mg/dL 100-19 9 Not Available [facility] ([facility]) [address] [facility], [place], [address], 08/01/2024 13:09:21 07/31/19 25 08/01/2024 LIPID PANEL triglyceride s 86 mg/dL 0-149 Not Available [facility] ([facility] [address] [place], [address], 08/01/2024 13:09:21 07/31/19 25 08/01/2024 LIPID PANEL HDL cholesterol 70 mg/dL >39 Not Available [facility] ([facility] [address] [place], [address], 08/01/2024 13:09:21 07/31/19 25 08/01/2024 LIPID PANEL VLDL cholesterol michelle 16 mg/dL 5-40 Not Available [facility] ([facility] [address] [place], [address], 08/01/2024 13:09:21 07/31/19 25 08/01/2024 LIPID PANEL LDL chol calc ([facility]) 92 mg/dL 0-99 Not Available [facility] ([facility] [address] [place], [address], 08/01/2024 13:09:21 07/31/19 25 08/01/2024 T4, FREE T4,free(dire ct) 1.76 NG/dL 0.82-1 .77 Not Available [facility] ([facility] [address] [place], [address], 08/01/2024 13:09:22 07/31/19 25 08/01/2024 COMP. METAB OLIC PANEL (14) glucose 90 mg/dL 70-99 Not Available [facility] ([facility]) [address] [place], [address], 08/01/2024 13:09:23 07/31/19 25 08/01/2024 COMP. METAB OLIC PANEL (14) BUN 21 mg/dL 8-27 Not Available [facility] ([facility] [address] [place], [address], 08/01/2024 13:09:23 07/31/19 25 08/01/2024 COMP. METAB OLIC PANEL (14) creatinine 1.27 mg/dL 0.76-1 .27 Not Available [facility] ([facility]) [address] [place], [address], 08/01/2024 13:09:23 07/31/19 25 08/01/2024 COMP. METAB OLIC PANEL (14) eGFR 57 mL/mi n/1.7 3 >59 below low normal Not Available [facility] ([facility]) [address] [place], [address], 08/01/2024 13:09:23 07/31/19 25 08/01/2024 COMP. METAB OLIC PANEL (14) BUN/creatini ne ratio 17 10-24 Not Available [facility] ([facility]) [address] [facility], [place], [address], 08/01/2024 13:09:23 07/31/19 25 08/01/2024 COMP. METAB OLIC PANEL (14) sodium 142 mmol/ L 134-14 4 Not Available [facility] ([facility] [address] [place], [address], 08/01/2024 13:09:23 07/31/19 25 08/01/2024 COMP. METAB OLIC PANEL (14) potassium 4.6 mmol/ L 3.5-5. 2 Not Available [facility] ([facility] [address] [place], [address], 08/01/2024 13:09:23 07/31/19 25 08/01/2024 COMP. METAB OLIC PANEL (14) chloride 103 mmol/ L 96-106 Not Available [facility] ([facility] [address] [place], [address], 08/01/2024 13:09:23 07/31/19 25 08/01/2024 COMP. METAB OLIC PANEL (14) carbon dioxide, total 25 mmol/ L 20-29 Not Available [facility] ([facility] [address] [place], [address], 08/01/2024 13:09:23 07/31/19 25 08/01/2024 COMP. METAB OLIC PANEL (14) calcium 9.1 mg/dL 8.6-10 .2 Not Available [facility] ([facility] [address] [place], [address], 08/01/2024 13:09:23 07/31/19 25 08/01/2024 COMP. METAB OLIC PANEL (14) protein, total 6.3 g/dL 6.0-8. 5 Not Available [facility] ([facility] [address] [place], [address], 08/01/2024 13:09:23 07/31/19 25 08/01/2024 COMP. METAB OLIC PANEL (14) albumin 4.0 g/dL 3.8-4. 8 Not Available [facility] ([facility] [address] [place], [address], 08/01/2024 13:09:23 07/31/19 25 08/01/2024 COMP. METAB OLIC PANEL (14) globulin, total 2.3 g/dL 1.5-4. 5 Not Available [facility] ([facility] [address] [place], [address], 08/01/2024 13:09:23 07/31/19 25 08/01/2024 COMP. METAB OLIC PANEL (14) bilirubin, total 0.8 mg/dL 0.0-1. 2 Not Available [facility] ([facility] [address] [place], [address], 08/01/2024 13:09:23 07/31/19 25 08/01/2024 COMP. METAB OLIC PANEL (14) alkaline phosphatase 93 IU/L 44-121 Not Available [facility] ([facility] [address] [facility], [place], [address], 08/01/2024 13:09:23 07/31/19 25 08/01/2024 COMP. METAB OLIC PANEL (14) AST (SGOT) 15 IU/L 0-40 Not Available [facility] ([facility] [address] [facility] [place], [address], 08/01/2024 13:09:23 07/31/19 25 08/01/2024 COMP. METAB OLIC PANEL (14) ALT (SGPT) 8 IU/L 0-44 Not Available [facility] ([facility] [address] [facility] [place], [address], 08/01/2024 13:09:23 07/31/19 25 08/01/2024 TSH TSH 1.480 uIU/m L 0.450- 4.500 Not Available [facility] ([facility]) [address] [facility], [place], [address], 08/01/2024 13:09:24 07/31/19 25 08/01/2024 CBC WITH DIFFE RENTI AL/PL ATELE T WBC 7.0 x10e3 /uL 3.4-10 .8 Not Available [facility] ([facility] [address] [facility] [place], [address], 08/01/2024 13:09:25 07/31/19 25 08/01/2024 CBC WITH DIFFE RENTI AL/PL ATELE T RBC 4.75 x10e6 /uL 4.14-5 .80 Not Available [facility] ([facility]) [address] [facility] [place], [address], 08/01/2024 13:09:25 07/31/19 25 08/01/2024 CBC WITH DIFFE RENTI AL/PL ATELE T hemoglobin 14.1 g/dL 13.0-1 7.7 Not Available [facility] ([facility] [address] [place], [address], 08/01/2024 13:09:25 07/31/19 25 08/01/2024 CBC WITH DIFFE RENTI AL/PL ATELE T hematocrit 43.2 % 37.5-5 1.0 Not Available [facility] ([facility] [address] [facility], [place], [address], 08/01/2024 13:09:25 07/31/19 25 08/01/2024 CBC WITH DIFFE RENTI AL/PL ATELE T MCV 91 fL 79-97 Not Available [facility] ([facility]) [address] [facility], [place], [address], 08/01/2024 13:09:25 07/31/19 25 08/01/2024 CBC WITH DIFFE RENTI AL/PL ATELE T MCH 29.7 pg 26.6-3 3.0 Not Available [facility] ([facility] [address] [facility], [place], [address], 08/01/2024 13:09:25 07/31/19 25 08/01/2024 CBC WITH DIFFE RENTI AL/PL ATELE T MCHC 32.6 g/dL 31.5-3 5.7 Not Available [facility] ([facility] [address] [facility], [place], [address], 08/01/2024 13:09:25 07/31/19 25 08/01/2024 CBC WITH DIFFE RENTI AL/PL ATELE T RDW 12.6 % 11.6-1 5.4 Not Available [facility] ([facility] [address] [place], [address], 08/01/2024 13:09:25 07/31/19 25 08/01/2024 CBC WITH DIFFE RENTI AL/PL ATELE T platelets 277 x10e3 /uL 150-45 0 Not Available [facility] ([facility] [address] [place], [address], 08/01/2024 13:09:25 07/31/19 25 08/01/2024 CBC WITH DIFFE RENTI AL/PL ATELE T neutrophils 65 % notest ab. Not Available [facility] ([facility]) [address] [facility], [place], [address], 08/01/2024 13:09:25 07/31/19 25 08/01/2024 CBC WITH DIFFE RENTI AL/PL ATELE T lymphs 24 % notest ab. Not Available [facility] ([facility] [address] [facility], [place], [address], 08/01/2024 13:09:25 07/31/19 25 08/01/2024 CBC WITH DIFFE RENTI AL/PL ATELE T monocytes 7 % notest ab. Not Available [facility] ([facility] [address] [facility], [place], [address], 08/01/2024 13:09:25 07/31/19 25 08/01/2024 CBC WITH DIFFE RENTI AL/PL ATELE T eos 3 % notest ab. Not Available [facility] ([facility]) [address] [facility], [place], [address], 08/01/2024 13:09:25 07/31/19 25 08/01/2024 CBC WITH DIFFE RENTI AL/PL ATELE T basos 1 % notest ab. Not Available [facility] ([facility]) [address] [facility], [place], [address], 08/01/2024 13:09:25 07/31/19 25 08/01/2024 CBC WITH DIFFE RENTI AL/PL ATELE T neutrophils (absolute) 4.5 x10e3 /uL 1.4-7. 0 Not Available [facility] ([facility] [address] [facility], [place], [address], 08/01/2024 13:09:25 07/31/19 25 08/01/2024 CBC WITH DIFFE RENTI AL/PL ATELE T lymphs (absolute) 1.7 x10e3 /uL 0.7-3. 1 Not Available [facility] ([facility] [address] [facility], [place], [address], 08/01/2024 13:09:25 07/31/19 25 08/01/2024 CBC WITH DIFFE RENTI AL/PL ATELE T monocytes(ab solute) 0.5 x10e3 /uL 0.1-0. 9 Not Available [facility] ([facility] [address] [facility], [place], [address], 08/01/2024 13:09:25 07/31/19 25 08/01/2024 CBC WITH DIFFE RENTI AL/PL ATELE T eos (absolute) 0.2 x10e3 /uL 0.0-0. 4 Not Available [facility] ([facility][1] [facility]) [address] [place], [address], 08/01/2024 13:09:25 07/31/19 25 08/01/2024 CBC WITH DIFFE RENTI AL/PL ATELE T baso (absolute) 0.1 x10e3 /uL 0.0-0. 2 Not Available [facility] ([facility][1] [facility]) [address] [facility], [place], [address], 08/01/2024 13:09:25 07/31/19 25 08/01/2024 CBC WITH DIFFE RENTI AL/PL ATELE T immature granulocytes 0 % notest ab. Not Available [facility] ([facility][1] [facility]) [address] [place], [address], 08/01/2024 13:09:25 07/31/19 25 08/01/2024 CBC WITH DIFFE RENTI AL/PL ATELE T immature grans (abs) 0.0 x10e3 /uL 0.0-0. 1 Not Available [facility] ([facility][1[facility]) [address] [place], [address], 08/01/2024 13:09:25 07/31/19 25 08/01/2024 PROST ATE-S PECIF IC AG prostate specific Ag 16.4 NG/mL 0.0-4. 0 above high normal [facility] ECLIA metho dolog y. Accor ding to the [employer] n, Serum PSA shoul d decre ase and remai n at undet ectab le level s after radic al prost atect gagandeep. The AUA defin es bioch emica l recur rence as an initi al PSA value 0.2 ng/mL or great er follo wed by a subse quent confi rmato ry PSA value 0.2 ng/mL or great er. Value s obtai sal with diffe rent assay metho ds or kits canno t be used inter jay eay . Resul ts canno t be inter prete d as absol [place] evide nce of the prese [facility]. Not Available [facility] ([facility][1[facility]) [address] [place], [address], 08/01/2024 13:09:27 07/31/1908/01/2024 TRIIO DOTHY KARINA E (T3), FREE triiodothyro nine (T3), free 1.9 pg/mL 2.0-4. 4 below low normal Not Available [facility] ([facility][1] [facility]) [address] [facility], [place], [address], 08/01/2024 13:09:28 Result Notes None recorded. Problems Name Problem SNOMED Code Status Onset Date Resolution Date Notes Provider Name and Address Organization Details Recorded Time Essential hypertension [id number] Active 2024 Virginie Castro MD Attn: Archana lawler,[address] [facility], [place], [address], [facility] [place] [facility] 16:49:40 Medication monitoring Active 2024 Virginie Castro MD Attn: Archana lawler,[address] [facility], [place], [address], [facility] 5 16:49:44 Cardiac arrhythmia 092415370 Active 2024 Virginie Castro MD Attn: Archana lawler,[address] [facility], [place], [address], [facility] 5 16:50:04 Problem Notes None recorded. Procedures Surgical History Date Name Laterality Status Provider Name and Address Organization Details Recorded Time Vasectomy completed Grace Bowman [facility] 2023 12:54:49 Imaging Results None recorded. Procedure Notes None recorded. Medical Equipment None Reported. Allergies No known drug allergies Medications Name Sig Start Date Stop Date Status Note LastModified by Organization Details LastModified Time amiodarone 200 mg tablet Take 1 tablet every other day by oral route. 2024 active Not Available Not Available Not Avai lable metoprolol succinate ER 50 mg tablet,exte nded release 24 hr 04/09 completed Not Available Not Available Not Available cefadroxil 500 mg capsule TAKE 2 CAPSULES BY MOUTH EVERY 12 HOURS FOR 10 DAYS 12/26 completed Not Available Not Available Not Available metoprolol succinate ER 25 mg tablet,exte nded release 24 hr Take 1 tablet every day by oral route. 2024 active Not Available Not Available Not Avai lable amiodarone 100 mg tablet Take 1 tablet every day by oral route. 02/19 completed Not Available Not Available Not Available Vitals Date Recorded Body height Body mass index (BMI) Body weight Heart rate Oxygen saturation Oxygen saturation in Arterial blood by Pulse oximetry Systolic blood pressure Diastolic blood pressure Provider Name and Address Organization Details Last Updated DateTime 4 177.8 cm 24.5 kg/m2 54306.3 g 52 /min 95 % 95 % 140 mm[Hg] 70 mm[Hg] Gilda Farooq MA [facility] 4 15:08:36 Date Recorded Body height Body mass index (BMI) Body weight Heart rate Oxygen saturation Oxygen saturation in Arterial blood by Pulse oximetry Body temperature Systolic blood pressure Diastolic blood pressure Provider Name and Address Organization Details Last Updated DateTime 4 177.8 cm 24.1 kg/m2 08481.1 6 g 90 /min 95 % 95 % 98 [degF] 140 mm[Hg] 60 mm[Hg] Tanya Norris MA [facility] 4 14:25:21 Date Recorded Body height Body mass index (BMI) Body weight Heart rate Oxygen saturation Oxygen saturation in Arterial blood by Pulse oximetry Systolic blood pressure Diastolic blood pressure Provider Name and Address Organization Details Last Updated DateTime 4 177.8 cm 23.6 kg/m2 00835.8 7 g 67 /min 98 % 98 % 118 mm[Hg] 62 mm[Hg] Ashley De Los Santos MA [facility] 4 12:28:52 Date Recorded Pain severity - 0-10 verbal numeric rating [Score] - Reported Provider Name and Address Organization Details Last Updated DateTime 12/27/2023 0 Grace Colby [facility] 12/27/2023 12:31:28 Date Recorded Body height Body mass index (BMI) Body weight Heart rate Oxygen saturation Oxygen saturation in Arterial blood by Pulse oximetry Systolic blood pressure Diastolic blood pressure Provider Name and Address Organization Details Last Updated DateTime 5 177.8 cm 24.4 kg/m2 92542.1 4 g 54 /min 99 % 99 % 130 mm[Hg] 70 mm[Hg] Deena banuelos MA [facility] 5 12:11:55 Social History Question Answer Notes LastModified by Organizat ion Details LastModified Time Tobacco Smoking Status Never Smoker Gilda Farooq MA null, [facility] 08/08/2023 15:03:06 Do You Have An Advance Directive? No Information not available 08/08/2023 What Is Your Level Of Alcohol Consumption? Moderate Patient Drinks Daily - But Unknown Amount Information not available 12/27/2023 Are You Blind Or Do You Have Difficulty Seeing? No Information not available 08/08/2023 What Is Your Level Of Caffeine Consumption? Moderate 1 Cup Of Coffee Daily Information not available 12/27/2023 In The 14 Days Before Symptom Onset, Have You [facility] That Case Was Ill? No Information not available 07/31/2024 In The 14 Days Before Symptom Onset, Have You Had Close Contact With A Person Who Is Under Investigation For COVID-19 While That Person Was Ill? No Information not available 07/31/2024 Have You Been To An Area Known To Be High Risk For COVID-19? No Information not available 07/31/2024 Are You Currently Employed? No Retired Information not available 12/27/2023 Are You Deaf Or Do You Have Serious Difficulty Hearing? Yes Bilateral Ears Information not available 12/27/2023 What Type Of Diet Are You Following? REGULAR Information not available 08/08/2023 What Is The Highest Grade Or Level Of School You Have Completed Or The Highest Degree You Have Received? [id number] Information not available 12/27/2023 Are There Any Guns Present In Your Home? No Information not available 08/08/2023 On The Days When You Exercised, How Long Did You Exercise Each Day (in Minutes)? 0 Information not available 12/27/2023 In The Past 7 Days, How Much Pain Have You [place]? None Information not available 12/27/2023 In General, Would You Say You Health Is: Good Information not available 12/27/2023 How Would You Describe The Condition Of Your Mouth And Teeth- Including False Teeth Or Dentures? Good Information not available 12/27/2023 Each Night, How Many Hours Of Sleep Do You Get? 4 Information not available 12/27/2023 Has Anyone Ever Told You That You Snore? No Information not available 12/27/2023 In The Past 7 Days, How Often Have You [place] Sleepy In The Daytime? Never Information not available 12/27/2023 What Was The Date Of Your Most Recent Tobacco Screening? 07/31/2024 Information not available 07/31/2024 What Is Your Relationship Status? Information not available 08/08/2023 Do You Use Your Seat Belt Or Car Seat Routinely? Yes Information not available 08/08/2023 Do You Have Smoke And Carbon Monoxide Detectors In Your Home? Yes Information not available 08/08/2023 Do You Feel Stressed (tense, Restless, Nervous, Or Anxious, Or Unable To Sleep At Night)? [id number] Information not available 12/27/2023 Do You Use Any Illicit Or Recreational Drugs? No Information not available 08/08/2023 Do You Use Sunscreen Routinely? No Information not available 12/27/2023 Has Tobacco Cessation Counseling Been Provided? No Information not available 08/08/2023 Do You Or Have You Ever Used Any Other Forms Of Tobacco Or Nicotine? No Information not available 08/08/2023 Sex: Male Functional Status Question Answer Note LastModified by Organization D etails LastModified Time Are you able to care for yourself? Yes Information n ot available 08/08/2023 What is your exercise level? None Information not available 08/08/2023 Mental Status None recorded. Family History Relationship Description Onset Age of this Age Resolved Age Notes LastModified by Organization Details LastModified Time Father Old-age Not available 12:54:08 Mother Old-age Not available 12:54:08 Unspecified Relation Hypertensive disorder Not available 2023 12:54:24 Son Drowning Not available 0 12/27/2023 12:54:32 Medical History Condition Response Coronary Artery Disease N Other N High Blood Pressure Y Atrial Fibrillation Y Thyroid Problems N Kidney or Bladder Problems N GI Problems N Depression N COPD N Blood Clots N Have you had a mammogram in the last yea r? N Skin Problems N Anemia N Heart Attack ([place]) N Diabetes N Anxiety Disorder N Muscle, Joint, or Bone Problems N Seizures/Epilepsy N Have you had a colonoscopy in the last 1 0 years? Y Acid Reflux (GERD) N Cancer N Stroke N Asthma N Allergies N Have you had a PSA blood test in the las t year? Y High Cholesterol N Hepatitis N Liver Disease N Headaches N Osteoporosis N Heart Failure N Past Encounters Encounter ID Performer Location Encounter Start Date Encounter Closed Date Diagnosis/Indication Diagnosis SNOMED-CT Code Diagnosis ICD10 Code Diagnosis Note [id number] Virginie Castro MD [facility] ([facility]) [address] [place] [phone] 08/08/2023 14:44:10 08/08/2023 16:30:09 Cardiac arrhythmia 217748781 I49.9 [id number] MD [facility] (Adult Med) [address] [place] [phone] 12/03/2023 14:00:03 12/03/2023 18:42:45 Atrial fibrillation 85458608 I48.91 Essential hypertension 12214206 I10 Medication monitoring 39 3697234 Z51.81 Laceration of left forearm 1627598618 1741357 S51.812A [id number] MD [facility] (Adult Med) [address] [place] [phone] 12/27/2023 11:28:34 12/27/2023 12:56:18 Adult health examination 720360265 Z00.00 Health Risk Assessment collected and reviewed [id number] MD [facility] (Adult Med) [address] [place] [phone] 07/31/2024 11:26:17 07/31/2024 12:50:06 Body mass index 20-24 - normal 988783096 Z68.24 Essential hypertension 33837184 I10 Medication monitoring 39 9574614 Z51.81 Screening for malignant neoplasm of prostate 370299608 Z12.5 Cardiac arrhythmia 31425 7007 I49.9 Health Concerns Section Related Observation LastModified by Organization Detai ls LastModified Time None Recorded Concern Status LastModified by Organization Details LastModified Time None Recorded Advance Directives Directive N: Payers Encounter Date Sequence Insurance Name Policy Number Policy Gant Covered Member ID Gant Member ID Guarantor Name 08/08/2023 1 [facility] (MEDICARE REPLACEMENT/A DVANTAGE - HMO) [id number] Jonh Rm [id number] Jonh Rm 12/03/2023 1 [facility] (MEDICARE REPLACEMENT/A DVANTAGE - HMO) [id number] Jonh Rm [id number] Jonh Rm 12/27/2023 1 [facility] (MEDICARE REPLACEMENT/A DVANTAGE - HMO) [id number] Jonh Rm [id number] Jonh Rm 07/31/2024 1 [facility] (MEDICARE REPLACEMENT/A DVANTAGE - HMO) [id number] Jonh Rm [id number] Jonh Rm Notes Date Note Type Note Provider Name and Address Organization Details Recorded Time 08/08/2023 text/html Arthritis of the knees bilaterally and wants a parking placard. Cardiac arrhythmias been maintained on amiodarone 200 mg a we need his old records Virginie Castro MD Attn: [address] , [place], [address], [facility] [place] [facility] 08/11/2023 17:34:21 12/03/2023 text/html Arthritis of the knees bilaterally and wants a parking placard. Cardiac arrhythmias been maintained on amiodarone 200 mg a we need his old records still. ER visit for laceration left arm which he has had about 50 stitches in. Hypertension no headache no dizziness Virginie Castro MD Attn: [address] , [place], [address], [facility] 12/16/2023 21:57:24 12/27/2023 text/html MAW 2Reported bypatient.Diet and Nutrition:discussed diet improvement Fracture Risk:no history of fractures; no sudden unexplained fractures Concentration and Memory:no decreased concentrating ability; no memory lapses or loss; does not forget words Speech/Motor difficulties:no speech difficulties; no difficulty expressing formulated concepts; no difficulty with fine manipulative tasks; no difficulty writing/copying; no slowed reaction time; does not knock things over when trying to pick them up 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 Vision:worse near(glasses) Activities of Daily Living:able to bathe with limited or no assistance; able to contol urination and bowels; able to dress with limited or no assistance; able to feed self with limited or no assistance; able to get out of chair or bed with limited or no assistance; able to groom with limited or no assistance; able to toilet with limited or no assistance Instrumental Activities of Daily Living:able to do house work with limited or no assistance; able to grocery shop with limited or no assistance; able to manage medications with limited or no assistance; able to manage money with limited or no assistance; able to prepare meals with limited or no assistance; able to use the phone with limited or no assistance Falls Risk Assessment:no frequent falls while walking; no fall since last visit; no dizziness/vertigo; fall(s) in the past year 1;injury with fall Home Safety:no unsafe brayan hazzards; no unsafe stairs; working smoke/CO detectors; practicing 'safer sex'; no fire arms; good lighting in the home;does not have hand bars in the bathroom/shower(work ing on getting) Virginie Castro MD Attn: [address] [place], [address], [facility] 12/27/2023 22:09:31 07/31/2024 text/html AFib asymptomati c hypertension blood pressure is controlled osteoarthritis stable mostly involves hips and knees times shoulders did not get the PFTs done Virginie Castro MD Attn: [address] [place], [address], [facility] 08/01/2024 16:51:38
--- OUTSIDE RECORDS SUMMARY | 2024-08-26 07:53 | XMS_ITS | Referral Summary ---
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 Gender Identity Not on file Sexual Orientation Not on file Occupation Industry Job Start Date Job End Date Retired Not on file Not on file Not on file Last Filed Vital Signs Vital Sign Reading [...] Plan of Treatment Not on file Insurance [facility] MDCR HMO REF Advance Directives For more information, please contact: [phone] Documents on File Type Date 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
--- NOTE | 2024-08-26 14:58 | P.PCNPFT_ITS ---
PFT Procedure Performed PFT Procedure Performed Plethysmography (Lung Vol) Diffusing Cap (DLCO) Flow Vol Loop Spirometry w/o Bronchodil PFT Interpretation Lung volumes were assessed using the body plethysmography technique and found to be normal. Spirometry results indicated reduced expiratory flow rates and an FEV1/FVC ratio of 49%, which is indicative of obstructive airway disease. The lung diffusion capacity is normal at 72% of the predicted value. The flow-volume loop also supports the presence of obstructive airway disease. A post- bronchodilator study was not performed. Impression: Moderate obstructive airway disease with normal lung diffusion capacity.
== END 2024-08-26 07:44 | disposition home or self-care (01) ==
PROVIDERS: PCP Internal Medicine; Visit Provider Internal Medicine
DX: J44.9 Chronic obstructive pulmonary disease, unspecified (principal); Z51.81 Encounter for therapeutic drug level monitoring; Z79.891 Long term (current) use of opiate analgesic
CPT/HCPCS: 94375; 94726; 94729